=== PATIENT | female | born 1935 | race Caucasian/White ===

== ENCOUNTER 2016-11-18 22:07 | Emergency (ER) | payer MEDICARE, BC ==
[~2016-11-18] VITALS: Ht 167.6 cm; Wt 77.1 kg
[2016-11-18] MEDS ORDERED: ONDANSETRON 4 MG/2 ML VIAL IM ONE (22:15)
[2016-11-18] MEDS ORDERED: HALOPERIDOL LACTATE 5 MG/1 ML VIAL IM ONE (22:15)
[2016-11-18] MEDS ORDERED: HALOPERIDOL LACTATE 5 MG/1 ML VIAL ONE (22:28)
[2016-11-18] MEDS ORDERED: ONDANSETRON 4 MG/2 ML VIAL ONE (22:29)
[2016-11-18] MEDS ORDERED: ONDANSETRON IV *ER 4 MG/2 ML VIAL IV ONE (22:30)
[2016-11-18 22:37] LABS: BASOPHILS % (AUTO) 0.6 % (0.0-2.0); EOSINOPHILS # (AUTO) 0.2 K/uL (0.0-0.7); EOSINOPHILS % (AUTO) 2.6 % (0.0-7.0); HEMATOCRIT 43.2 % (37-47); HEMOGLOBIN 14.9 G/DL (12.0-16.0); LYMPHOCYTES # (AUTO) 0.9 K/UL (0.8-4.8); LYMPHOCYTES % (AUTO) 15.4 % (20.5-51.5); MEAN CORPUSCULAR HEMOGLOBIN 33.8 UUG (27.0-31.0); MEAN CORPUSCULAR HGB CONC 35 g/dL (32.0-37.0); MEAN CORPUSCULAR VOLUME 97.9 FL (81.0-99.0); MONOCYTES # (AUTO) 0.7 K/UL (0.1-1.30); MONOCYTES % (AUTO) 11.2 % (0.0-11.0); NEUTROPHILS # (AUTO) 4.3 K/UL (1.8-8.9); NEUTROPHILS % (AUTO) 70.2 % (38.5-71.5); PLATELET COUNT (AUTO) 273 K/UL (150-450); RED BLOOD CELL COUNT(AUTO) 4.41 MIL/UL (4.2-5.4); WHITE BLOOD COUNT (AUTO) 6.1 K/UL (4.0-11.2)
[2016-11-18] MEDS ORDERED: LEVO150T8 PO (22:41)
[2016-11-18] MEDS ORDERED: AMLO5TAB2 PO (22:41)
[2016-11-18] MEDS ORDERED: FLUO-120 PO (22:41)
[2016-11-18] MEDS ORDERED: ATOR40TA PO (22:41)
[2016-11-18] MEDS ORDERED: LOSA1TAB39 PO (22:41)
[2016-11-18 22:45] LABS: ETHANOL 239 MG/DL (0-0)
[2016-11-18 22:56] LABS: ALANINE AMINOTRANSFERASE 19 U/L (14-59); ALKALINE PHOSPHATASE 71 U/L (50-136); ASPARTATE AMINOTRANSFERASE 22 U/L (15-37); BILIRUBIN,DIRECT 0.1 mg/dL (0.0-0.2); BILIRUBIN,TOTAL 0.2 mg/dL (0.2-1.0); CARBON DIOXIDE 29 mmol/L (21-32); CHLORIDE 100 mmol/L (98-107); CREATININE 0.6 mg/dL (0.6-1.3); GLUCOSE 118 mg/dL (74-106); POTASSIUM 3.3 mmol/L (3.5-5.1); THYROID STIMULATING HORMONE 3.744 mIU/mL (0.358-3.740); TOTAL PROTEIN, SERUM 7.3 g/dL (6.4-8.2); UREA NITROGEN, BLOOD 19 mg/dL (7-18)
[2016-11-18 22:57] LABS: ACETAMINOPHEN < 2.0 ug/mL (10-30)
[2016-11-18] MEDS ORDERED: FEXO180T94 PO (23:14)
[2016-11-18] MEDS ORDERED: LORA1TAB PO (23:14)
[2016-11-18] MEDS ORDERED: DOXE10CA2 PO (23:14)
[2016-11-18] MEDS ORDERED: ESOM40CA PO (23:14)
[2016-11-18] MEDS ORDERED: CHOL4PAC3 PO (23:14)
[2016-11-18] MEDS ORDERED: MELO-264 PO (23:14)
[2016-11-18] MEDS ORDERED: TDAP DIPH,PERTUSS,TET VAC/PF 0.5 ML DISP.SYRIN IM ONE (23:30)
--- NOTE | 2016-11-18 23:41 | NUR ---
Patient and family informed on need for Tetanus Vaccination. MD at bedside for detailed explanation of risks vs benefits. Family and patient refuse at this time. Will follow up at primary care physician within the next 72 hours for vaccination.
--- NOTE | 2016-11-19 00:13 | NUR ---
Patient discharged to home in stable conditon. Written and verbal after care instructions given. Patient verbalizes understanding of instructions. Ambulated from ER with stable gait, accompanied by 2 daughters and a granddaughter. patient will be driven home by family in a private vehicle. All belongings with patient.
[2016-11-19 00:14] VITALS: BP 130/77
== END 2016-11-19 00:15 | disposition home or self-care (01) ==
LOC: ER 22:10
DX: F10.129 Alcohol abuse with intoxication, unspecified (principal); E03.9 Hypothyroidism, unspecified; S90.411A Abrasion, right great toe, initial encounter; F41.9 Anxiety disorder, unspecified; R51 Headache; S09.90XA Unspecified injury of head, initial encounter; X58.XXXA Exposure to other specified factors, initial encounter; Y93.89 Activity, other specified; Y99.8 Other external cause status; Y92.89 Other specified places as the place of occurrence of the external cause
CPT/HCPCS: 70030-TC; 70450; 71010; 72125; 84443; 85025; 93005; A4663; G0480; G0480-TC; J1630; J2405

== ENCOUNTER 2019-05-04 10:34 | Emergency (ER) | payer MEDICARE, BC ==
[~2019-05-04] VITALS: Ht 162.6 cm; Wt 64.0 kg
[~2019-05-04 10:34] MED LIST: AMLO5TAB9 PO; ATOR40TA PO; CHOL4PAC3 PO; DOXE10CA2 PO; ESOM40CA PO; FEXO180T94 PO; FLUO-120 PO; LEVO150T8 PO; LORA1TAB PO; LOSA1TAB39 PO; MELO-107 PO
--- NOTE | 2019-05-04 10:54 | NUR ---
Dr Li at the bedside for MSE.
[2019-05-04] MEDS ORDERED: IV NORMAL SALINE 500 ML BAG IV ONE (11:00)
--- NOTE | 2019-05-04 11:23 | NUR ---
Pt out of Er for CT.
[2019-05-04] MEDS ORDERED: PROC10TA13 PO (11:31)
[2019-05-04] MEDS ORDERED: TIOT18CA3 IH (11:31)
[2019-05-04] MEDS ORDERED: PANT40TA2 PO (11:31)
[2019-05-04] MEDS ORDERED: FOLI0.8T2 PO (11:31)
[2019-05-04] MEDS ORDERED: COLE3.75 PO (11:31)
[2019-05-04] MEDS ORDERED: DEXA4TAB PO (11:31)
[2019-05-04] MEDS ORDERED: ONDA4TAB10 PO (11:31)
[2019-05-04] MEDS ORDERED: ESTR0.5T PO (11:31)
[2019-05-04] MEDS ORDERED: LEVO125T PO (11:31)
[2019-05-04] MEDS ORDERED: ACET-2154 PO (11:31)
[2019-05-04] MEDS ORDERED: PRED20TA PO (11:31)
[2019-05-04 11:35] LABS: CREATININE 0.6 mg/dL (0.6-1.3)
--- NOTE | 2019-05-04 11:38 | NUR ---
Pt back from CT. NAD noted, multiple family members at the bedside.
[2019-05-04 11:41] LABS: BILIRUBIN,DIRECT 0.2 mg/dL (0.0-0.2); BILIRUBIN,TOTAL 0.8 mg/dL (0.2-1.0); TOTAL PROTEIN, SERUM 6.7 g/dL (6.4-8.2)
[2019-05-04 11:45] LABS: BASOPHILS % (AUTO) 0.1 % (0.0-2.0); EOSINOPHILS % (AUTO) 0.3 % (0.0-7.0); HEMATOCRIT 41.8 % (31.2-41.9); HEMOGLOBIN 13.8 g/dL (10.9-14.3); LYMPHOCYTES # (AUTO) 0.9 K/uL (20.0-40.0); LYMPHOCYTES % (AUTO) 9.7 % (20.5-51.5); MEAN CORPUSCULAR HEMOGLOBIN 30.4 uug (24.7-32.8); MEAN CORPUSCULAR HGB CONC 33 g/dL (32.3-35.6); MONOCYTES # (AUTO) 0.3 K/uL (2.0-10.0); MONOCYTES % (AUTO) 3.1 % (0.0-11.0); NEUTROPHILS # (AUTO) 8.3 K/uL (1.8-8.9); NEUTROPHILS % (AUTO) 86.8 % (38.5-71.5); PLATELET COUNT (AUTO) 314 K/uL (179-408); RED BLOOD CELL COUNT(AUTO) 4.54 MIL/uL (3.63-4.92); WHITE BLOOD COUNT (AUTO) 9.6 K/uL (3.8-11.8)
[2019-05-04] MEDS ORDERED: POTASSIUM CHLORIDE 20 MEQ TAB.PRT.SR PO ONE (12:00)
[2019-05-04] MEDS ORDERED: POTASSIUM CHLORIDE 20 MEQ TAB.PRT.SR ONE (12:02)
[2019-05-04 12:48] VITALS: BP 142/77
--- NOTE | 2019-05-04 12:48 | NUR ---
IV removed. Catheter intact and site benign. Pressure and 4x4 gauze applied to site. No bleeding noted.
--- NOTE | 2019-05-04 12:49 | NUR ---
Patient discharged to home in stable conditon. Written and verbal after care instructions given. Patient and pt's family verbalize understanding of instructions.
== END 2019-05-04 12:49 | disposition home or self-care (01) ==
LOC: ER 10:35
DX: E87.6 Hypokalemia (principal); I10 Essential (primary) hypertension; E78.00 Pure hypercholesterolemia, unspecified; E03.9 Hypothyroidism, unspecified; Z79.899 Other long term (current) drug therapy
CPT/HCPCS: 36415; 70030-TC; 70450; 71045; 83605; 85025; 85730; 86850; 86900; 86901; 87040; 93005; A4663; J7040

== ENCOUNTER 2019-06-22 13:46 | Emergency (ER) | payer MEDICARE, BC ==
[~2019-06-22] VITALS: Ht 157.5 cm; Wt 67.1 kg
[~2019-06-22 13:46] MED LIST changes: +ACET-2154 PO; -AMLO5TAB9 PO; -CHOL4PAC3 PO; +COLE3.75 PO; +DEXA4TAB PO; -DOXE10CA2 PO; -ESOM40CA PO; +ESTR0.5T PO; -FEXO180T94 PO; -FLUO-120 PO; +FLUO20CA40 PO; +FOLI0.8T2 PO; +LEVO125T PO; -LEVO150T8 PO; -MELO-107 PO; +ONDA-104 PO; +PANT40TA2 PO; +PRED20TA PO; +PROC10TA13 PO; +TIOT18CA3 IH
[2019-06-22] MEDS ORDERED: IV NORMAL SALINE 500 ML BAG IV ONE (14:15)
[2019-06-22 14:42] LABS: BASOPHILS % (AUTO) 0.2 % (0.0-2.0); EOSINOPHILS # (AUTO) 0.1 K/uL (0.0-0.7); EOSINOPHILS % (AUTO) 0.7 % (0.0-7.0); HEMATOCRIT 40.8 % (31.2-41.9); HEMOGLOBIN 13.6 g/dL (10.9-14.3); LYMPHOCYTES # (AUTO) 0.1 K/uL (20.0-40.0); LYMPHOCYTES % (AUTO) 0.9 % (20.5-51.5); MEAN CORPUSCULAR HEMOGLOBIN 31.2 uug (24.7-32.8); MEAN CORPUSCULAR HGB CONC 33 g/dL (32.3-35.6); MEAN CORPUSCULAR VOLUME 93.8 fL (75.5-95.3); MONOCYTES # (AUTO) 0.8 K/uL (2.0-10.0); MONOCYTES % (AUTO) 7.3 % (0.0-11.0); NEUTROPHILS # (AUTO) 9.7 K/uL (1.8-8.9); NEUTROPHILS % (AUTO) 90.9 % (38.5-71.5); PLATELET COUNT (AUTO) 360 K/uL (179-408); RED BLOOD CELL COUNT(AUTO) 4.35 MIL/uL (3.63-4.92); WHITE BLOOD COUNT (AUTO) 10.7 K/uL (3.8-11.8)
[2019-06-22 14:48] LABS: CREATININE 0.7 mg/dL (0.6-1.3); POTASSIUM 3.8 mmol/L (3.5-5.1)
[2019-06-22 14:54] LABS: BILIRUBIN,DIRECT 0.1 mg/dL (0.0-0.2); BILIRUBIN,TOTAL 0.7 mg/dL (0.2-1.0); TOTAL PROTEIN, SERUM 6.6 g/dL (6.4-8.2)
--- NOTE | 2019-06-22 15:00 | NUR ---
pt restng, no sign of distress at this time.
[2019-06-22] MEDS ORDERED: CETI-110 PO (15:02)
--- NOTE | 2019-06-22 15:38 | NUR ---
Patient discharged to home in stable conditon. Written and verbal after care instructions given. Patient verbalizes understanding of instructions.pt accompaniedby daughter and career development consultant.
[2019-06-22 15:40] VITALS: BP 139/77
== END 2019-06-22 15:40 | disposition home or self-care (01) ==
LOC: ER 13:47
DX: R55 Syncope and collapse (principal); D02.20 Carcinoma in situ of unspecified bronchus and lung; I10 Essential (primary) hypertension; E78.5 Hyperlipidemia, unspecified; E03.9 Hypothyroidism, unspecified; Z79.899 Other long term (current) drug therapy
CPT/HCPCS: 70030-TC; 71045; 85025; 93005; A4663; J7040

== ENCOUNTER 2022-05-11 22:43 | Inpatient (IN) | payer MEDICARE, BC ==
[~2022-05-11] VITALS: Ht 167.6 cm; Wt 86.2 kg
[~2022-05-11 22:43] MED LIST changes: +CETI-90 PO; -FLUO20CA40 PO; +FLUO20CA42 PO; -PROC10TA13 PO
[2022-05-11] MEDS ORDERED: IV NORMAL SALINE 500 ML BAG IV ONE (23:15)
[2022-05-11] MEDS ORDERED: levETIRAcetam IV 500 MG in IV DEXTROSE 5% 100 ML IV ONE (23:15)
[2022-05-11 23:42] LABS: HEMATOCRIT 41.3 % (31.2-41.9); MEAN CORPUSCULAR HEMOGLOBIN 31.8 uug (24.7-32.8); MEAN CORPUSCULAR VOLUME 94.5 fL (75.5-95.3); PLATELET COUNT (AUTO) 263 K/uL (179-408)
[2022-05-11 23:46] LABS: ALANINE AMINOTRANSFERASE 24 U/L (14-59); ALKALINE PHOSPHATASE 108 U/L (50-136); ASPARTATE AMINOTRANSFERASE 23 U/L (15-37); BILIRUBIN,DIRECT 0.1 mg/dL (0.0-0.2); BILIRUBIN,TOTAL 0.4 mg/dL (0.2-1.0); CARBON DIOXIDE 26 mmol/L (21-32); CHLORIDE 99 mmol/L (98-107); GLUCOSE 142 mg/dL (74-106); TOTAL PROTEIN, SERUM 7.1 g/dL (6.4-8.2); UREA NITROGEN, BLOOD 22 mg/dL (7-18)
[2022-05-12 00:05] LABS: ETHANOL < 3 MG/DL (0-0)
[2022-05-12] MEDS ORDERED: HYDROMORPHONE 1 MG/1 ML DISP.SYRIN ONE ×2 (00:07→03:45)
[2022-05-12] MEDS ORDERED: HYDROMORPHONE 1 MG/1 ML DISP.SYRIN IV ONE ×2 (00:15→03:45)
[2022-05-12] MEDS ORDERED: MELO-105 PO (01:04)
[2022-05-12] MEDS ORDERED: ATOR20TA PO (01:04)
[2022-05-12] MEDS ORDERED: AMLO-212 PO (01:04)
[2022-05-12] MEDS ORDERED: IV 0.9% SODIUM CHLORID+ 20 KCL 1,000 ML IV ONE (01:15)
[2022-05-12] MEDS ORDERED: ONDANSETRON 4 MG/2 ML VIAL IV ONE (01:15)
[2022-05-12] MEDS ORDERED: ONDANSETRON 4 MG/2 ML VIAL ONE (01:19)
[2022-05-12] MEDS ORDERED: levETIRAcetam 500 MG/5 ML VIAL IV ONE (01:36)
[2022-05-12] MEDS ORDERED: IV 0.9% SODIUM CHLORID+ 20 KCL 1,000 ML ONE (01:36)
--- NOTE | 2022-05-12 01:59 | NUR ---
Keppra 500 mg was mixed with 100 mld5w and given to patient via IV. Patient vomitted twice . Zofran IVP given as ordered.
[2022-05-12] MEDS ORDERED: DEXAMETHASONE SOD PHOSPHATE 4 MG INJ ONE (02:36)
[2022-05-12] MEDS ORDERED: DEXAMETHASONE SOD PHOSPHATE 4 MG INJ IV ONE (02:45)
--- NOTE | 2022-05-12 04:07 | NUR ---
Right shoulder immobilizer placed.
[2022-05-12] MEDS ORDERED: diphenhydrAMINE 50 MG/1 ML VIAL ONE (04:09)
[2022-05-12] MEDS ORDERED: diphenhydrAMINE 50 MG/1 ML VIAL IV ONE (04:15)
--- NOTE | 2022-05-12 07:12 | NUR ---
Received endorsement from Mali PAGAN and Tati PAGAN.
--- NOTE | 2022-05-12 07:44 | NUR ---
Pt's daughter, Mary Kay, called and asked about the pt's status. Call back number of the daughter, . Mary Kay stated that the pt's scrap bunch maker and oncologist are Dr. Gera Montana and Dr. Corbin Mueller, respectively. Talked to Dr. Blanco about pt's transfer status to [facility], still waiting for the call back for available bed.
--- NOTE | 2022-05-12 09:02 | NUR ---
Called [facility] for pt's transfer status, talked to nurse Jeny and stated that she will call back as soon as a bed is available for the pt. Also requesting a CD for imaging before transfer. Call back # [phone] option 2.
--- NOTE | 2022-05-12 09:49 | NUR ---
Pt's solar thermal installer came in to drop Welchol 4tabs, for pt's chronic diarrhea.
--- NOTE | 2022-05-12 10:06 | NUR ---
Changed pt's diaper and sheets, with the help of Eula LYNNE. Pt is now clean and comfortable.
--- NOTE | 2022-05-12 10:52 | NUR ---
Lexis Paulson arrived to sit with the pt.
--- NOTE | 2022-05-12 10:59 | NUR ---
Pt was desating to 85, RT changed nasal cannula to mask at 10lpm of O2, pt's O2 sat to 95%.
--- NOTE | 2022-05-12 12:05 | NUR ---
Called [facility] for bed availability, still no available bed.
--- NOTE | 2022-05-12 14:55 | NUR ---
Report givent to Aung PAGAN.
--- NOTE | 2022-05-12 15:15 | NUR ---
ADMITTED VIA [facility]. ORIENTED TO SURROUNDINGS. CAREGIVER AT BEDSIDE.
--- NOTE | 2022-05-12 15:18 | NUR ---
Transported pt to Tele, Rm [phone], Received by nurse Aung.
[2022-05-12 15:58] VITALS: BP 168/78
[2022-05-12] MEDS ORDERED: ACETAMINOPHEN 325 MG TABLET PO PRN (17:00)
[2022-05-12] MEDS ORDERED: ONDANSETRON 4 MG/2 ML VIAL IV PRN (17:00)
[2022-05-12] MEDS ORDERED: HYDROCODONE/APAP 5-325MG TABLET PO PRN (17:00)
[2022-05-12] MEDS ORDERED: MAGNESIUM HYDROXIDE 30 ML LIQUID UDC PO PRN (17:00)
--- NOTE | 2022-05-12 17:30 | NUR ---
DAUGHTER AT BEDSIDE. INC. LARGE AMOUNT OF URINE WITH DIAPER AND LINEN CHANGE. EATING DINNER.
[2022-05-12] MEDS ORDERED: COLE625T9 PO (18:20)
[2022-05-12] MEDS ORDERED: LOSA1TAB39 PO (18:20)
--- NOTE | 2022-05-12 20:00 | NUR ---
discharge process on going;
[2022-05-12] MEDS ORDERED: levETIRAcetam 500 MG TABLET PO SCH (21:00)
[2022-05-12] MEDS ORDERED: ZOLPIDEM 5 MG TABLET PO PRN (21:00)
[2022-05-12] MEDS ORDERED: DEXAMETHASONE SOD PHOSPHATE 10 MG INJ IV SCH (21:00)
[2022-05-12] MEDS ORDERED: ATORVASTATIN 40 MG TABLET PO SCH (21:00)
[2022-05-12] MEDS ORDERED: ATORVASTATIN 20 MG TABLET PO SCH (21:00)
--- NOTE | 2022-05-12 22:28 | NUR ---
2200 Pt has been picked up by [facility] to be transferred to [facility] [address] Rm [id number]; Report given to Nurse Nicki @ [facility]; Pt's daughter was present during fern picker
[2022-05-13] MEDS ORDERED: LEVOTHYROXINE SODIUM 125 MCG TABLET PO SCH (07:00)
[2022-05-13] MEDS ORDERED: PANTOPRAZOLE SODIUM 40 MG TABLET.DR PO SCH ×2 (07:00→09:00)
[2022-05-13] MEDS ORDERED: CETIRIZINE HCL 10 MG TABLET PO SCH (09:00)
[2022-05-13] MEDS ORDERED: AMLODIPINE 5 MG TABLET PO SCH (09:00)
[2022-05-13] MEDS ORDERED: ESTRADIOL 1 MG TABLET PO SCH (09:00)
[2022-05-13] MEDS ORDERED: FLUOXETINE HCL 20 MG CAPSULE PO SCH (09:00)
== END 2022-05-12 22:00 | disposition short-term general hospital (02) | DRG 101 ==
LOC: ER 22:47 → TELE3 05-12 14:21
DX: R56.9 Unspecified convulsions (principal); S42.201A Unspecified fracture of upper end of right humerus, initial encounter for closed fracture; C34.90 Malignant neoplasm of unspecified part of unspecified bronchus or lung; C79.31 Secondary malignant neoplasm of brain; G30.9 Alzheimer's disease, unspecified; F02.80 Dementia in other diseases classified elsewhere, unspecified severity, without behavioral disturbance, psychotic disturbance, mood disturbance, and anxiety; X58.XXXA Exposure to other specified factors, initial encounter; Y93.9 Activity, unspecified; Y92.009 Unspecified place in unspecified non-institutional (private) residence as the place of occurrence of the external cause; Z20.822 Contact with and (suspected) exposure to COVID-19; Z98.1 Arthrodesis status
CPT/HCPCS: 36415; 70450; 71045; 73030; 85025; 93005; G0378; G0480; J1100; J1170; J1200; J1953; J2405; J7040